=== PATIENT | female | born 1950 | race Caucasian/White ===

== ENCOUNTER 2022-03-11 15:21 | Emergency (ER) | payer MEDICARE, SELFPAY ==
[2022-03-11 15:32] VITALS: BP 123/62; PULSE 93; RESP 16; O2SAT 96
--- NOTE | 2022-03-11 15:43 | ED.EAR ---
HPI - Ear Problem General Chief complaint: Ear Stated complaint: hearing loss, ears clogged Time Seen by Provider: 03/11/22 15:25 Source: patient and RN notes reviewed History of Present Illness HPI Narrative: Patient is a 71-year-old female who presents the urgent care with complaints of decreased hearing out of the right ear and bilateral ears clogged. Patient states that it got worse last night and she has been taking Sudafed. Denies any other upper respiratory complaints. No acute distress noted. Patient aware of the plan of care. Some parts of this dictation were generated by voice recognition software and may contain typographical and/or grammatical inaccuracies. Related Data Home Medications Medication Instructions Recorded Confirmed citalopram 20 mg PO DAILY 03/11/22 03/11/22 gabapentin 1,200 mg PO TID 03/11/22 03/11/22 Allergies Allergy/AdvReac Type Severity Reaction Status Date / Time No Known Allergies Allergy Verified 03/11/22 15:37 Review of Systems Review of Systems: CONSTITUTIONAL: Denies fever, chills, or sweats. EYES: Denies visual changes, redness, or discharge. ENT: Denies rhinorrhea, congestion, sore throat. Reports of impacted cerumen bilaterally with decreased hearing on the right CARDIOVASCULAR: Denies chest pain, palpitations, or edema. RESPIRATORY: Denies cough or dyspnea. GASTROINTESTINAL: Denies abdominal pain, nausea, vomiting, or diarrhea. GENITOURINARY: Denies dysuria or hematuria. SKIN: Denies rash or itching. MUSCULOSKELETAL: Denies back pain, joint pain, or myalgia. NEUROLOGIC: Denies headache, numbness, or weakness. All other systems reviewed are negative, except as documented in HPI. PMFSH Comments At the time of my signature, I reviewed and agree with the nursing past medical, surgical, social, and family history. There is no relevant family history pertinent to the patient complaint. Exam Narrative: GENERAL: This is a well-nourished, well-developed patient, in no apparent distress. HEAD: normocephalic, atraumatic. EYES: PERRL. Sclera clear/white. Vision is grossly intact. EARS: External ears normal, auditory canals clear and without drainage, unable to visualize bilateral TMs due to cerumen impaction NOSE: External nose normal with no obvious nasal discharge, nares without redness, no rhinorrhea. THROAT: Mucous membranes moist, posterior pharynx clear. NECK: Neck supple SKIN: warm, intact with no suspicious lesions or rash, good texture and turgor. NEURO: awake, alert, and oriented to person, place and time. There were no obvious focal neurologic abnormalities. EXTREMITIES: No clubbing, cyanosis, or edema. Course Course Level of Care: Express Care Visit Vital Signs Vital signs: Vital Signs Pulse Rate 93 03/11/22 15:32 Respiratory Rate 16 03/11/22 15:32 Blood Pressure 123/62 03/11/22 15:32 Pulse Oximetry 96 03/11/22 15:32 Pulse Rate 93 03/11/22 15:32 Respiratory Rate 16 03/11/22 15:32 Blood Pressure 123/62 03/11/22 15:32 Pulse Oximetry 96 03/11/22 15:32 Reviewed Procedures Ear Wax Removal Both Ears: Cerumenolytic Used: other (50-50 peroxide and warm water) Results: Re-examined: some cerumen remains TM Examination: TM(s) intact, normal appearance Patient Tolerated Procedure: well Complications: no problems Additional Comments: Bilateral cerumen impaction use 50-50 peroxide and warm water with lighted curette. Some cerumen remains bilaterally. Hearing improved greatly to the right. TMs normal and intact. Patient tolerated well. Procedure successful. Medical Decision Making MDM Narrative Medical decision making narrative: Advised the patient to use warm compress to bilateral ears for comfort over the next 24 to 48 hours. May use Tylenol/ibuprofen as needed. Some cerumen remains bilaterally and no inner ear infection noted. Use the eardrops to bilateral ears for at least the next 4 to 7 days. D
== END 2022-03-11 15:59 | disposition home or self-care (01) ==
PROVIDERS: Emergency Provider Nurse Practitioner Family
DX: H61.23 Impacted cerumen, bilateral (principal)
CPT/HCPCS: 69209; 99213; G0463